=== PATIENT | male | born 1980 | race Caucasian/White ===

== ENCOUNTER 2017-05-17 02:56 | Inpatient (IN) | payer MEDICAID ==
[2017-05-17] MEDS: PANTOPRAZOLE IV 80 MG in SOD CHLORIDE 0.9% 100 ML IVPB ×2 (06:23→14:00)
[2017-05-17] MEDS: LIDOCAINE/MYLANTA 40 ML BTL PO (08:05)
[2017-05-17 08:10] LABS: ADD MAN DIFF? NO
[2017-05-17 08:13] LABS: ABNORMAL IP MESSAGE 1; BASOPHILS % 0.5 % (0.0-2.0); EOSINOPHILS # 0.4 10^3/ul (0.0-0.5); EOSINOPHILS % 10.3 % (0.0-7.0); HEMATOCRIT 26.2 % (42.0-52.0); HEMOGLOBIN 7.5 g/dl (14.0-18.0); LYMPHOCYTES # 0.7 10^3/ul (0.8-2.9); LYMPHOCYTES % 19.1 % (15.0-51.0); MEAN CORPUSCULAR HEMOGLOBIN 21.7 pg (29.0-33.0); MEAN CORPUSCULAR HGB CONC 28.6 g/dl (32.0-37.0); MEAN CORPUSCULAR VOLUME 75.7 fl (82.0-101.0); MEAN PLATELET VOLUME 10.6 fl (7.4-10.4); MONOCYTE # 0.2 10^3/ul (0.3-0.9); MONOCYTES % 5.4 % (0.0-11.0); NEUTROPHIL # 2.5 10^3/ul (1.6-7.5); NEUTROPHILS % 64.2 % (39.0-77.0); PLATELET COUNT 197 10^3/UL (140-415); POSITIVE DIFF @See below; RED BLOOD COUNT 3.46 10^6/ul (4.70-6.10); RED CELL DISTRIBUTION WIDTH 18.4 % (11.5-14.5)
[2017-05-17 08:13] LABS: WHITE BLOOD COUNT 3.9 10^3/ul (4.8-10.8)
[2017-05-17] MEDS: PANTOPRAZOLE IV 80 MG in SOD CHLORIDE 0.9% 100 ML IV (08:30)
[2017-05-17 08:42] LABS: INR 0.82; PROTIME 11.4 Sec (11.9-14.9); PT RATIO 0.9
[2017-05-17 08:44] LABS: ANION GAP 16 (8-16)
[2017-05-17 09:03] LABS: ALANINE AMINOTRANSFERASE 50 IU/L (13-69); ALBUMIN 4.5 g/dl (3.3-4.9); ALKALINE PHOSPHATASE 128 IU/L (42-121); ASPARTATE AMINO TRANSFERASE 27 IU/L (15-46); BILIRUBIN,INDIRECT 0.2 mg/dl (0-1.1); BILIRUBIN,TOTAL 0.2 mg/dl (0.2-1.3); BLOOD UREA NITROGEN 10 mg/dl (7-20); CALCIUM 8.9 mg/dl (8.4-10.2); CARBON DIOXIDE 25 mmol/L (21-31); CHLORIDE 104 mmol/L (97-110); CREATININE 0.91 mg/dl (0.61-1.24); GLUCOSE 117 mg/dl (70-220); POTASSIUM 3.7 mmol/L (3.5-5.1); SODIUM 141 mmol/L (135-144); TOTAL PROTEIN 7.3 g/dl (6.1-8.1)
[2017-05-17 10:48] LABS: IMMEDIATE SPIN CROSSMATCH 1 3
[2017-05-17] MEDS: SOD CHLORIDE 0.9% 1,000 ML IV (11:19)
[2017-05-17] MEDS ORDERED: ONDANSETRON 4 MG INJ IV (11:30)
[2017-05-17] MEDS: SOD CHLORIDE 0.9% 250 ML IV* (14:03)
[2017-05-17 14:18] LABS: IRON 13 ug/dl (35-150)
[2017-05-17 14:27] LABS: % IRON SATURATION 3 % SAT (22-52); TOTAL IRON BINDING CAPACITY 493 ug/dl (241-421)
[2017-05-17] MEDS: BISACODYL (EC) 5 MG TAB PO (14:48)
[2017-05-17] MEDS: MAGNESIUM CITRATE 300 ML BTL PO (21:33)
[2017-05-17] MEDS: POLYETHYLENE GLYCOL 3350 119 GM POWDER PO (21:33)
[2017-05-18] MEDS: PANTOPRAZOLE IV 80 MG in SOD CHLORIDE 0.9% 100 ML IVPB ×2 (03:15→11:44)
[2017-05-18] MEDS: POLYETHYLENE GLYCOL 3350 119 GM POWDER PO (05:34)
[2017-05-18] MEDS ORDERED: PROPOFOL 200 MG INJ (07:00)
[2017-05-18] MEDS: BISACODYL (EC) 5 MG TAB PO (08:07)
[2017-05-18] MEDS: ACETAMINOPHEN 325 MG TAB PO (08:25)
[2017-05-18] MEDS: INFLUENZA VIRUS VACCINE 0.5 ML (DISPENSING) IM* (10:05)
[2017-05-18] MEDS ORDERED: ONDANSETRON 4 MG INJ IV ×2 (12:30→19:00)
[2017-05-18] MEDS: SOD CHLORIDE 0.9% 1,000 ML IV ×2 (12:43→21:22)
[2017-05-18 14:26] LABS: ADD MAN DIFF? NO
[2017-05-18 14:30] LABS: BASOPHILS % 0.7 % (0.0-2.0); EOSINOPHILS # 0.4 10^3/ul (0.0-0.5); EOSINOPHILS % 9.2 % (0.0-7.0); HEMATOCRIT 33.4 % (42.0-52.0); HEMOGLOBIN 10.1 g/dl (14.0-18.0); LYMPHOCYTES # 1.1 10^3/ul (0.8-2.9); LYMPHOCYTES % 26.2 % (15.0-51.0); MEAN CORPUSCULAR HEMOGLOBIN 23.1 pg (29.0-33.0); MEAN CORPUSCULAR HGB CONC 30.2 g/dl (32.0-37.0); MEAN CORPUSCULAR VOLUME 76.3 fl (82.0-101.0); MEAN PLATELET VOLUME 10.3 fl (7.4-10.4); MONOCYTE # 0.3 10^3/ul (0.3-0.9); MONOCYTES % 6.7 % (0.0-11.0); NEUTROPHIL # 2.3 10^3/ul (1.6-7.5); PLATELET COUNT 215 10^3/UL (140-415); RED BLOOD COUNT 4.38 10^6/ul (4.70-6.10); RED CELL DISTRIBUTION WIDTH 19.9 % (11.5-14.5)
[2017-05-18 14:42] LABS: HEMOGLOBIN A1C 5.7 % (0-5.9)
[2017-05-18 14:50] LABS: ALANINE AMINOTRANSFERASE 48 IU/L (13-69); ALBUMIN 4.8 g/dl (3.3-4.9); ALBUMIN/GLOBULIN RATIO 1.41; ALKALINE PHOSPHATASE 127 IU/L (42-121); ANION GAP 16 (8-16); ASPARTATE AMINO TRANSFERASE 29 IU/L (15-46); BILIRUBIN,INDIRECT 0.7 mg/dl (0-1.1); BILIRUBIN,TOTAL 0.7 mg/dl (0.2-1.3); BLOOD UREA NITROGEN 14 mg/dl (7-20); CALCIUM 9.3 mg/dl (8.4-10.2); CARBON DIOXIDE 25 mmol/L (21-31); CHLORIDE 104 mmol/L (97-110); CREATININE 1.08 mg/dl (0.61-1.24); GLUCOSE 100 mg/dl (70-220); MAGNESIUM 2.7 mg/dl (1.7-2.5); PHOSPHORUS 4.5 mg/dl (2.5-4.9); POTASSIUM 3.9 mmol/L (3.5-5.1); SODIUM 141 mmol/L (135-144); TOTAL PROTEIN 8.2 g/dl (6.1-8.1)
[2017-05-18] MEDS: SOD FERRIC GLUC COMPLX 125 MG in SOD CHLORIDE 0.9% 100 ML IVPB (14:52)
[2017-05-18 15:01] LABS: IRON 25 ug/dl (35-150)
[2017-05-18 15:03] LABS: CHOLESTEROL 184 mg/dl (100-200)
[2017-05-18 15:03] LABS: CHOL/HDL RATIO 6.1 RATIO; HDL CHOLESTEROL 30 mg/dl (28-63); LDL CHOLESTEROL,CALCULATED 99 mg/dl; TRIGLYCERIDES 273 mg/dl (0-149)
[2017-05-18 15:10] LABS: % IRON SATURATION 5 % SAT (22-52); TOTAL IRON BINDING CAPACITY 496 ug/dl (241-421)
[2017-05-18 15:24] LABS: FERRITIN 10.8 ng/ml (17.9-464.0)
[2017-05-18] MEDS: FENTAnyl 50 MCG/ML VIAL (18:18)
[2017-05-18] MEDS: PROPOFOL 20 ML (18:18)
[2017-05-18] MEDS: MESALAMINE 1000 MG SUPP PR (20:55)
[2017-05-19] MEDS: PANTOPRAZOLE (EC) 40 MG TAB PO ×2 (06:18→17:36)
[2017-05-19 07:46] LABS: ADD MAN DIFF? NO
[2017-05-19 07:48] LABS: WHITE BLOOD COUNT 5.1 10^3/ul (4.8-10.8)
[2017-05-19 07:48] LABS: BASOPHILS % 0.8 % (0.0-2.0); EOSINOPHILS # 0.4 10^3/ul (0.0-0.5); HEMATOCRIT 32.8 % (42.0-52.0); HEMOGLOBIN 9.9 g/dl (14.0-18.0); LYMPHOCYTES # 0.8 10^3/ul (0.8-2.9); LYMPHOCYTES % 16.4 % (15.0-51.0); MEAN CORPUSCULAR HEMOGLOBIN 23.4 pg (29.0-33.0); MEAN CORPUSCULAR HGB CONC 30.2 g/dl (32.0-37.0); MEAN CORPUSCULAR VOLUME 77.5 fl (82.0-101.0); MEAN PLATELET VOLUME 10.8 fl (7.4-10.4); MONOCYTE # 0.3 10^3/ul (0.3-0.9); MONOCYTES % 6.6 % (0.0-11.0); NEUTROPHIL # 3.5 10^3/ul (1.6-7.5); PLATELET COUNT 219 10^3/UL (140-415); RED BLOOD COUNT 4.23 10^6/ul (4.70-6.10); RED CELL DISTRIBUTION WIDTH 19.8 % (11.5-14.5)
[2017-05-19 08:12] LABS: PHOSPHORUS 4.2 mg/dl (2.5-4.9)
[2017-05-19 08:12] LABS: ANION GAP 16 (8-16); BLOOD UREA NITROGEN 16 mg/dl (7-20); CARBON DIOXIDE 24 mmol/L (21-31); CHLORIDE 105 mmol/L (97-110); CREATININE 1.09 mg/dl (0.61-1.24); GLUCOSE 123 mg/dl (70-220); MAGNESIUM 2.4 mg/dl (1.7-2.5); SODIUM 141 mmol/L (135-144)
[2017-05-19] MEDS: SOD CHLORIDE 0.9% 1,000 ML IV ×2 (08:30→12:58)
[2017-05-19] MEDS ORDERED: HARD FAT/PHENYLEPHRINE SUPP PR (11:30)
[2017-05-19] MEDS: ACETAMINOPHEN 325 MG TAB PO (13:34)
[2017-05-19] MEDS: SOD FERRIC GLUC COMPLX 125 MG in SOD CHLORIDE 0.9% 100 ML IVPB (14:12)
[2017-05-19] MEDS: HARD FAT/PHENYLEPHRINE SUPP PR (15:24)
[2017-05-19] MEDS: POLYETHYLENE GLYCOL 17 GM PACKET PO (22:24)
[2017-05-19] MEDS: DOCUSATE SODIUM 100 MG CAP PO (22:24)
[2017-05-19] MEDS: MESALAMINE 1000 MG SUPP PR (22:24)
[2017-05-20] MEDS: SOD CHLORIDE 0.9% 1,000 ML IV (00:40)
[2017-05-20] MEDS: PANTOPRAZOLE (EC) 40 MG TAB PO (05:13)
[2017-05-20 06:31] LABS: ADD MAN DIFF? NO
[2017-05-20 06:36] LABS: WHITE BLOOD COUNT 4.7 10^3/ul (4.8-10.8)
[2017-05-20 06:36] LABS: BASOPHILS % 0.8 % (0.0-2.0); EOSINOPHILS # 0.5 10^3/ul (0.0-0.5); EOSINOPHILS % 10.2 % (0.0-7.0); HEMATOCRIT 31.2 % (42.0-52.0); HEMOGLOBIN 9.5 g/dl (14.0-18.0); LYMPHOCYTES # 1.1 10^3/ul (0.8-2.9); LYMPHOCYTES % 23.8 % (15.0-51.0); MEAN CORPUSCULAR HEMOGLOBIN 23.6 pg (29.0-33.0); MEAN CORPUSCULAR HGB CONC 30.4 g/dl (32.0-37.0); MEAN CORPUSCULAR VOLUME 77.4 fl (82.0-101.0); MEAN PLATELET VOLUME 10.6 fl (7.4-10.4); MONOCYTE # 0.4 10^3/ul (0.3-0.9); MONOCYTES % 7.6 % (0.0-11.0); NEUTROPHIL # 2.7 10^3/ul (1.6-7.5); NEUTROPHILS % 57.4 % (39.0-77.0); PLATELET COUNT 200 10^3/UL (140-415); RED BLOOD COUNT 4.03 10^6/ul (4.70-6.10); RED CELL DISTRIBUTION WIDTH 19.6 % (11.5-14.5)
[2017-05-20 07:00] LABS: PHOSPHORUS 4.4 mg/dl (2.5-4.9)
[2017-05-20 07:17] LABS: ANION GAP 14 (8-16); BLOOD UREA NITROGEN 16 mg/dl (7-20); CALCIUM 9.3 mg/dl (8.4-10.2); CARBON DIOXIDE 25 mmol/L (21-31); CHLORIDE 106 mmol/L (97-110); CREATININE 1.17 mg/dl (0.61-1.24); GLUCOSE 117 mg/dl (70-220); POTASSIUM 4.4 mmol/L (3.5-5.1); SODIUM 141 mmol/L (135-144)
[2017-05-20] MEDS: DIATR MEGLU/DIATRIZOATE SODIUM 120 ML BTL (08:57)
[2017-05-20] MEDS: POLYETHYLENE GLYCOL 17 GM PACKET PO (11:15)
[2017-05-20] MEDS: DOCUSATE SODIUM 100 MG CAP PO (11:16)
== END 2017-05-20 14:53 | disposition home or self-care (01) | DRG 378 ==
LOC: E/R 02:56 → PP2 05-18 22:15 → E/R 13:36 → TEL 11:19
PROC: 0DB68ZX Excision of Stomach, Via Natural or Artificial Opening Endoscopic, Diagnostic (ICD-10-PCS; principal; 2017-05-18 18:00)
PROC: 0DJD8ZZ Inspection of Lower Intestinal Tract, Via Natural or Artificial Opening Endoscopic (ICD-10-PCS; 2017-05-18 18:00)
PROC: 30233N1 Transfusion of Nonautologous Red Blood Cells into Peripheral Vein, Percutaneous Approach (ICD-10-PCS; 2017-05-18 18:00)
DX: K92.1 Melena (principal); D62 Acute posthemorrhagic anemia; I10 Essential (primary) hypertension; K29.70 Gastritis, unspecified, without bleeding; K64.8 Other hemorrhoids; K20.9 Esophagitis, unspecified; E66.9 Obesity, unspecified; D50.9 Iron deficiency anemia, unspecified; E78.5 Hyperlipidemia, unspecified; B96.81 Helicobacter pylori [H. pylori] as the cause of diseases classified elsewhere; R12 Heartburn; Z68.35 Body mass index [BMI] 35.0-35.9, adult
CPT/HCPCS: 36415; 36430; 74240; 74250; 80048; 80053; 80061; 82728; 83036; 83540; 83735; 84100; 85025; 85610; 85730; 86850; 86900; 86901; 86920; 88305; 88312; 90686; 96374; 99285-25

== ENCOUNTER 2017-09-02 13:44 | Emergency (ER) | payer SELFPAY, MEDICAID ==
[2017-09-02] MEDS: predniSONE 20 MG TAB PO (14:55)
[2017-09-02] MEDS: IBUPROFEN 600 MG TAB PO (14:57)
[2017-09-02] MEDS: ACYCLOVIR 800 MG TAB PO (15:05)
== END 2017-09-02 15:21 | disposition home or self-care (01) ==
LOC: FTE 13:44
DX: B02.9 Zoster without complications (principal); I10 Essential (primary) hypertension
CPT/HCPCS: 99284

== ENCOUNTER 2017-11-18 01:45 | Emergency (ER) | payer SELFPAY, OTHER ==
[2017-11-18] MEDS: ONDANSETRON (ODT) 4 MG TAB ODT (02:53)
[2017-11-18] MEDS: ACET/BUTAL/CAFF TAB PO (02:53)
== END 2017-11-18 04:54 | disposition home or self-care (01) ==
LOC: FTE 01:45
DX: R51 Headache (principal); R11.0 Nausea; I10 Essential (primary) hypertension
CPT/HCPCS: 70450; 99284-25

== ENCOUNTER 2018-05-25 03:59 | Emergency (ER) | payer SELFPAY ==
[2018-05-25 05:20] LABS: ADD MAN DIFF? NO
[2018-05-25 05:22] LABS: WHITE BLOOD COUNT 9.1 10^3/ul (4.8-10.8)
[2018-05-25 05:22] LABS: ABNORMAL IP MESSAGE 1; BASOPHIL # 0.1 10^3/ul (0.0-0.1); BASOPHILS % 0.6 % (0.0-2.0); EOSINOPHILS # 0.4 10^3/ul (0.0-0.5); EOSINOPHILS % 4.5 % (0.0-7.0); HEMATOCRIT 30.3 % (42.0-52.0); HEMOGLOBIN 8.7 g/dl (14.0-18.0); LYMPHOCYTES # 0.8 10^3/ul (0.8-2.9); LYMPHOCYTES % 9.3 % (15.0-51.0); MEAN CORPUSCULAR HEMOGLOBIN 21.4 pg (29.0-33.0); MEAN CORPUSCULAR HGB CONC 28.7 g/dl (32.0-37.0); MEAN CORPUSCULAR VOLUME 74.6 fl (82.0-101.0); MEAN PLATELET VOLUME 10.6 fl (7.4-10.4); MONOCYTE # 0.8 10^3/ul (0.3-0.9); MONOCYTES % 8.8 % (0.0-11.0); NEUTROPHIL # 6.9 10^3/ul (1.6-7.5); NEUTROPHILS % 76.5 % (39.0-77.0); PLATELET COUNT 197 10^3/UL (140-415); POSITIVE DIFF @See below; RED BLOOD COUNT 4.06 10^6/ul (4.70-6.10); RED CELL DISTRIBUTION WIDTH 16.7 % (11.5-14.5)
[2018-05-25 05:58] LABS: ANION GAP 16 (5-13); BLOOD UREA NITROGEN 9 mg/dl (7-20); CALCIUM 9.9 mg/dl (8.4-10.2); CARBON DIOXIDE 22 mmol/L (21-31); CHLORIDE 104 mmol/L (97-110); CREATININE 0.85 mg/dl (0.61-1.24); Estimated GFR > 60 mL/min (>60); GLUCOSE 146 mg/dl (70-220); POTASSIUM 3.9 mmol/L (3.5-5.1); SODIUM 142 mmol/L (135-144)
[2018-05-25 06:10] LABS: TROPONIN-I < 0.012 ng/ml (0.000-0.120)
== END 2018-05-25 06:52 | disposition home or self-care (01) ==
LOC: FTE 03:59
DX: R05 Cough (principal); I10 Essential (primary) hypertension
CPT/HCPCS: 36415; 71045; 80048; 84484; 85025; 93005; 99285-25

== ENCOUNTER 2018-06-13 02:36 | Emergency (ER) | payer SELFPAY ==
[2018-06-13] MEDS: LORAZEPAM 1 MG TAB PO (04:56)
== END 2018-06-13 05:00 | disposition home or self-care (01) ==
LOC: FTE 02:36
DX: K59.00 Constipation, unspecified (principal); F41.9 Anxiety disorder, unspecified; I10 Essential (primary) hypertension
CPT/HCPCS: 99283

== ENCOUNTER 2018-08-20 15:46 | Emergency (ER) | payer MEDICAID ==
[2018-08-20 19:02] LABS: ADD MAN DIFF? NO
[2018-08-20 19:06] LABS: WHITE BLOOD COUNT 3.5 10^3/ul (4.8-10.8)
[2018-08-20 19:06] LABS: BASOPHILS % 0.6 % (0.0-2.0); EOSINOPHILS # 0.1 10^3/ul (0.0-0.5); EOSINOPHILS % 3.2 % (0.0-7.0); HEMATOCRIT 35.6 % (42.0-52.0); HEMOGLOBIN 10.6 g/dl (14.0-18.0); LYMPHOCYTES # 0.8 10^3/ul (0.8-2.9); LYMPHOCYTES % 23.8 % (15.0-51.0); MEAN CORPUSCULAR HEMOGLOBIN 22.6 pg (29.0-33.0); MEAN CORPUSCULAR HGB CONC 29.8 g/dl (32.0-37.0); MEAN CORPUSCULAR VOLUME 75.9 fl (82.0-101.0); MEAN PLATELET VOLUME 8.9 fl (7.4-10.4); MONOCYTE # 0.3 10^3/ul (0.3-0.9); MONOCYTES % 9.9 % (0.0-11.0); NEUTROPHIL # 2.1 10^3/ul (1.6-7.5); NEUTROPHILS % 61.9 % (39.0-77.0); PLATELET COUNT 190 10^3/UL (140-415); RED BLOOD COUNT 4.69 10^6/ul (4.70-6.10); RED CELL DISTRIBUTION WIDTH 17.1 % (11.5-14.5)
[2018-08-20] MEDS: morphine 4 MG/ML VIAL IV (19:06)
[2018-08-20] MEDS: KETOROLAC 30 MG INJ IV ×2 (19:06→20:12)
[2018-08-20] MEDS: SOD CHLORIDE 0.9% 1,000 ML IV (19:06)
[2018-08-20] MEDS: ONDANSETRON 4 MG INJ IV (19:06)
[2018-08-20 19:26] LABS: ALANINE AMINOTRANSFERASE 127 IU/L (13-69); ALBUMIN/GLOBULIN RATIO 1.21; ALKALINE PHOSPHATASE 112 IU/L (42-121); ANION GAP 7 (5-13); ASPARTATE AMINO TRANSFERASE 62 IU/L (15-46); BLOOD UREA NITROGEN 8 mg/dl (7-20); CALCIUM 9.2 mg/dl (8.4-10.2); CARBON DIOXIDE 28 mmol/L (21-31); CHLORIDE 106 mmol/L (97-110); CREATINE KINASE 110 IU/L (23-200); CREATININE 0.74 mg/dl (0.61-1.24); Estimated GFR > 60 mL/min (>60); GLUCOSE 116 mg/dl (70-220); POTASSIUM 3.7 mmol/L (3.5-5.1); SODIUM 141 mmol/L (135-144); TOTAL PROTEIN 7.3 g/dl (6.1-8.1)
[2018-08-20 19:41] LABS: B-TYPE NATRIURETIC PEPTIDE 37 PG/ML (0-125); CK INDEX 0.6; CK-MB 0.63 ng/ml (0.0-2.4); TROPONIN-I < 0.012 ng/ml (0.000-0.120)
[2018-08-20 19:43] LABS: INR 0.83; PROTIME 11.5 Sec (11.9-14.9); PT RATIO 0.9
[2018-08-20 19:59] LABS: AMYLASE 117 U/L (11-123)
[2018-08-20 19:59] LABS: LIPASE 151 U/L (23-300)
[2018-08-20] MEDS: LORAZEPAM 2 MG INJ IV (20:12)
== END 2018-08-20 23:23 | disposition home or self-care (01) ==
LOC: E/R 15:46
DX: R00.2 Palpitations (principal); I10 Essential (primary) hypertension; M62.838 Other muscle spasm
CPT/HCPCS: 71045; 80053; 82150; 82550; 82553; 83690; 83880; 84484; 85025; 85610; 85730; 93005; 96374; 96375; 96376; 99285-25